=== PATIENT | female | born 1965 | race Caucasian/White ===

== ENCOUNTER 2016-11-14 13:00 | Emergency (ER) | payer BC ==
[2016-11-14 13:54] VITALS: BP 134/93
--- NOTE | 2016-11-14 14:35 | UC ---
Complaint Female HPI - HPI Summary HPI Summary: ONE WEEK OF URINARY FREQUENCY, MILD LOW BACK PAIN. NO FEVER. NO ABDOMINAL PAIN. - History Of Current Complaint Hx Obtained From: Patient Hx Last Menstrual Period: Irregular, a couple of months ago Onset/Duration: Sudden Onset, Lasting Days, Still Present Timing: Intermittent Severity Initially: Mild Severity Currently: Moderate Character: Dull, Burning Aggravating Factor(s): Urination Associated Signs And Symptoms: Negative: Fever, Back Pain, Vaginal Bleeding/ Discharge, Vaginal Discharge, Vomiting(# Of Episodes =), Genital Swelling, Genital Blisters - Risk Factors Ectopic Risk Factor: Negative Ovarian Torsion Risk Factor: Negative <Elbert Dueñas - Last Filed: 11/14/16 14:30> <Kimberly Upton - Last Filed: 11/14/16 16:56> - History Of Current Complaint Chief Complaint: [facility] Stated Complaint: back pain and frequent urination Time Seen by Provider: 11/14/16 14:05 - Allergies/Home Medications Allergies/Adverse Reactions: Allergies Allergy/AdvReac Type Severity Reaction Status Date / Time No Known Allergies Allergy Verified 11/14/16 13:54 PMH/Surg Hx/FS Hx/Imm Hx Previously Healthy: Yes - Surgical History Surgical History: Yes Surgery Procedure, Year, and Place: appencectomy. knee surgery L - Family History Known Family History: Negative: Renal Disease - Social History Occupation: Employed Full-time Lives: With Family Alcohol Use: Rare Substance Use Type: None Smoking Status (MU): Former Smoker Type: Cigarettes When Did the Patient Quit Smoking/Using Tobacco: only in college <Elbert Dueñas - Last Filed: 11/14/16 14:30> Review of Systems Constitutional: Negative Skin: Negative Eyes: Negative ENT: Negative Respiratory: Negative Cardiovascular: Negative Genitourinary: Dysuria, Frequency, Urgency Motor: Negative Neurovascular: Negative Musculoskeletal: Negative Neurological: Negative Psychological: Negative Is Patient Immunocompromised?: No All Other Systems Reviewed And Are Negative: Yes <Elbert Dueñas - Last Filed: 11/14/16 14:30> Physical Exam Triage Information Reviewed: Yes Appearance: Well-Appearing, No Pain Distress, Well-Nourished Vital Signs: Initial Vital Signs Temp 97.8 F 11/14/16 13:46 Pulse 87 11/14/16 13:46 Resp 16 11/14/16 13:46 BP 134/93 09/18/17 13:46 Pulse Ox 100 11/14/16 13:46 Vital Signs Reviewed: Yes Eye Exam: Normal ENT Exam: Normal ENT: Positive: Normal ENT inspection Dental Exam: Normal Neck exam: Normal Neck: Positive: Supple, Nontender, No Lymphadenopathy Respiratory Exam: Normal Respiratory: Positive: Chest non-tender, Lungs clear, Normal breath sounds, No respiratory distress, No accessory muscle use Cardiovascular Exam: Normal Cardiovascular: Positive: RRR, No Murmur, Pulses Normal, Brisk Capillary Refill Abdominal Exam: Normal Abdomen Description: Positive: Nontender, No Organomegaly, Soft. Negative: CVA Tenderness (R), CVA Tenderness (L) Musculoskeletal Exam: Normal Neurological Exam: Normal Psychological Exam: Normal Skin Exam: Normal <Elbert Dueñas - Last Filed: 11/14/16 14:30> Vital Signs: Initial Vital Signs Temp 97.8 F 11/14/16 13:46 Pulse 87 11/14/16 13:46 Resp 16 11/14/16 13:46 BP 134/93 11/14/16 13:46 Pulse Ox 100 11/14/16 13:46 <Kimberly Upton - Last Filed: 11/14/16 16:56> Complaint Female Dx - Differential Dx/Diagnosis Differential Diagnosis/HQI/PQRI: Urinary Tract Infection Provider Diagnoses: URINARY TRACT INFECTION <Elbert Dueñas - Last Filed: 11/14/16 14:30> Discharge <Elbert Dueñas - Last Filed: 11/14/16 14:30> <Kimberly Upton - Last Filed: 11/14/16 16:56> - Discharge Plan Condition: Stable Disposition: HOME Prescriptions: Phenazopyridine TAB* [Pyridium 100 mg TAB*] 100 mg PO TID #15 tab Sulfamethox/Trimethoprim DS* [Bactrim DS 800/160 TAB*] 1 tab PO BID #10 tab Patient Education Materials: Urinary Tract Infection in Women (ED) Referrals: Shelly Parham MD [Primary Care Provider] - Attestation Statement User Type: Provider - I was available for consult. This patient was seen by the QUINTIN. The patient was not presented to, seen by, or examined by me. -Rosalie <Kimberly Upton - Last Filed: 11/14/16 16:56>
== END 2016-11-14 14:35 | disposition home or self-care (01) ==
LOC: UCEAST 13:00
DX: N39.0 Urinary tract infection, site not specified (principal); B96.20 Unspecified Escherichia coli [E. coli] as the cause of diseases classified elsewhere; M54.5 Low back pain; Z87.891 Personal history of nicotine dependence
CPT/HCPCS: 81003; 87077; 87086; 87186; 99212; G0463